=== PATIENT | male | born 1950 | race Caucasian/White ===

== ENCOUNTER 2021-03-25 13:49 | Inpatient (IN) | payer MEDICARE, MEDICAID ==
[~2021-03-25] VITALS: Ht 182.9 cm; Wt 118.0 kg
[~2021-03-25 13:49] MED LIST: CALC-1151 PO; LISI20TA28 PO; LORA1TAB PO; METF500T PO; MULT-785 PO; NAPR220C15 PO; NEBI10TA4 PO; OMEG300C2 PO; POTA8CAP PO; [UNRECOGNIZED DRUG - MIXTURE] PO
[2021-03-25 15:20] LABS: BASOPHILS # (AUTO) 0.1 X10'3 (0-0.2); BASOPHILS % (AUTO) 0.6 % (0-1); EOSINOPHILS % (AUTO) 0.2 % (0-6); HEMATOCRIT 41.1 % (42.0-52.0); HEMOGLOBIN 13.8 g/dl (14.0-17.9); LYMPHOCYTES # (AUTO) 0.8 X10'3 (1.1-4.8); MEAN CORPUSCULAR HEMOGLOBIN 29.6 PG (27.0-31.0); MEAN CORPUSCULAR HGB CONC 33.6 g/dL (33.0-36.5); MEAN PLATELET VOLUME 7.5 FL (7.4-10.4); MONOCYTES # (AUTO) 0.9 X10'3 (0-0.9); MONOCYTES % (AUTO) 7.9 % (2-12); NEUTROPHILS # (AUTO) 9.5 X10'3 (1.8-7.7); NEUTROPHILS % (AUTO) 84.3 % (42-75); PLATELET COUNT 316 X10'3 (140-440); RED BLOOD COUNT 4.67 X10'6 (4.70-6.10); RED CELL DISTRIBUTION WIDTH 13.8 % (11.5-14.5); WHITE BLOOD COUNT 11.2 X10'3 (4.5-11.0)
[2021-03-25 15:49] LABS: D-DIMER 0.54 MG/L FEU (0-0.50)
[2021-03-25 15:52] LABS: ALANINE AMINOTRANSFERASE 24 U/L (12-78); ALBUMIN 3.8 G/DL (3.4-5.0); ALBUMIN/GLOBULIN RATIO 1.2 (1.1-1.5); ALKALINE PHOSPHATASE 78 IU/L (46-116); ANION GAP 11 (8-16); ASPARTATE AMINO TRANSFERASE 18 U/L (10-37); BILIRUBIN,TOTAL 0.5 MG/DL (0.1-1.0); BLOOD UREA NITROGEN 18 MG/DL (7-18); BUN/CREATININE RATIO 18.8 (5.4-32.0); CALCIUM 9.5 MG/DL (8.5-10.1); CHLORIDE 105 MMOL/L (99-107); CREATININE 0.96 MG/DL (0.60-1.10); GLUCOSE 181 MG/DL (70-104); POTASSIUM 4.2 MMOL/L (3.5-5.1); SODIUM 143 MMOL/L (135-145); TOTAL CARBON DIOXIDE 26.8 MMOL/L (24-32); eGFR 77 ML/MIN
[2021-03-25 15:59] LABS: MAGNESIUM 1.6 MG/DL (1.5-2.4)
--- NOTE | 2021-03-25 16:21 | NUR ---
DR CARVAJAL AT BEDSIDE.
[2021-03-25] MEDS ORDERED: normal saline 1000ML IV soln IVB ONE (16:30)
[2021-03-25] MEDS ORDERED: HYDR-3965 PO (17:28)
[2021-03-25] MEDS ORDERED: GLIP5TAB13 PO (17:28)
[2021-03-25] MEDS ORDERED: METO100T14 PO (17:28)
[2021-03-25] MEDS ORDERED: BIMA2.5D OP (17:28)
[2021-03-25] MEDS ORDERED: LISI20TA28 PO (17:28)
[2021-03-25] MEDS ORDERED: HYDR25TA4 PO (17:28)
[2021-03-25] MEDS ORDERED: METF-438 PO (17:28)
[2021-03-25] MEDS ORDERED: DEXTROSE 15 GM of carb/4 tabs (each vial/BOTTLE has 4 tablets) PO PRN ×2 (17:35)
[2021-03-25] MEDS ORDERED: dextrose 50%-water 50ml dispensing syringe IV PRN ×2 (17:35)
[2021-03-25] MEDS ORDERED: mag hydrox/Alum hydrox/simeth 30ml oral suspension PO PRN (17:35)
[2021-03-25] MEDS ORDERED: MESSAGE TO PHARMACY PO ONE (17:35)
[2021-03-25] MEDS ORDERED: magnesium hydroxide 30ml (MOM) UD suspension PO PRN (17:35)
[2021-03-25] MEDS ORDERED: glucagon, human recombinant 1mg kit SUBCUT PRN (17:35)
[2021-03-25] MEDS ORDERED: acetaminophen 325mg tablet PO PRN ×2 (17:35)
[2021-03-25] MEDS ORDERED: morphine 2 MG/ML inj. syringe IV PRN (17:35)
[2021-03-25] MEDS ORDERED: aspirin 81mg tab.chew PO ONE (17:40)
[2021-03-25] MEDS ORDERED: furosemide 10 MG/1 ML 10ml inj IV ONE (17:45)
--- NOTE | 2021-03-25 17:45 | NUR ---
to MRI via wheelchair
--- NOTE | 2021-03-25 18:16 | NUR ---
returned from MRI
[2021-03-25 18:17] LABS: CHOL/HDL RATIO 4.4 (0.00-4.99); CHOLESTEROL 218 MG/DL (0-200); HDL CHOLESTEROL 49 MG/DL (35-60); LDL CHOLESTEROL 137 MG/DL (50-100); TRIGLYCERIDES 128 MG/DL (20-135)
[2021-03-25 18:46] LABS: CLARITY,URINE CLEAR (Clear); COLOR,URINE YELLOW (Yellow); GLUCOSE, URINE NEGATIVE (Neg); KETONES,URINE 15 mg/dl (Neg); LEUKOCYTE ESTERASE ,URINE NEGATIVE (Neg); NITRITES, URINE NEGATIVE (Neg); OCCULT BLOOD,URINE NEGATIVE (Neg); PROTEIN,URINE 100 mg/dl (Neg); UA COLLECTION TYPE URINAL; UROBILINOGEN,URINE 0.2 E.U/dL (0.2-1.0)
[2021-03-25 18:59] LABS: HEMOGLOBIN A1C 7.7 % (4.5-6.2)
[2021-03-25 19:04] LABS: BACTERIA,URINE NONE SEEN /HPF (Neg); MUCUS STRANDS MANY /LPF (Neg); RBC,URINE 0-2 /HPF (0-2); SQUAMOUS EPITHELIAL CELL,UR NONE SEEN /LPF (FEW); WBC,URINE 0-4 /HPF (0-4)
[2021-03-25 19:05] LABS: AMORPHOUS URATES 1+
[2021-03-25] MEDS: insulin glargine (Lantus) pen - multi-dose SQ SCH (19:16)
[2021-03-25] MEDS: docusate sod 100mg capsule PO SCH (19:17)
--- NOTE | 2021-03-25 19:51 | NUR ---
changed patients linens assisted with urinal patients at bedside call light with in reach
--- NOTE | 2021-03-25 19:53 | NUR ---
while assisting patient to use urinal he became unaware of his own abilities, and unable to follow simple commands. patient settled back in bed with clean linens, call light, and urinal within reach. at bedside.
[2021-03-25] MEDS ORDERED: thiamine 100mg/ml 2ml inj. IV ONE (20:20)
[2021-03-25] MEDS ORDERED: thiamine inj. 500 MG in normal saline 100ml IV soln 100 ML IV ONE (20:20)
[2021-03-25 22:00] VITALS: BP 151/73
--- NOTE | 2021-03-25 22:10 | NUR ---
promotional table spacer PAGER ID: [phone] MESSAGE: Radames Leahy FROM [facility] JUST CALL TO REPORT TROPONIN LEVEL FOR PT VIKRAM ROSALES IN ROOM 312. TROPONIN IS 232. DEBBIE PERSAUD.
--- NOTE | 2021-03-25 22:14 | NUR ---
NIGHT STOCKER CALL BACK. NO NEW ORDER.
[2021-03-26] VITALS (9 sets, daily range): BP systolic 145–209; BP diastolic 58–94
[2021-03-26] MEDS: labetalol 20mg/4ml (5mg/ml) syringe IV PRN (01:04)
[2021-03-26 06:09] LABS: BASOPHILS # (AUTO) 0.1 X10'3 (0-0.2); BASOPHILS % (AUTO) 0.8 % (0-1); EOSINOPHILS # (AUTO) 0.1 X10'3 (0-0.9); EOSINOPHILS % (AUTO) 0.9 % (0-6); HEMATOCRIT 38.3 % (42.0-52.0); HEMOGLOBIN 12.9 g/dl (14.0-17.9); LYMPHOCYTES # (AUTO) 1.4 X10'3 (1.1-4.8); MEAN CORPUSCULAR HEMOGLOBIN 29.8 PG (27.0-31.0); MEAN CORPUSCULAR HGB CONC 33.7 g/dL (33.0-36.5); MEAN CORPUSCULAR VOLUME 88.4 FL (78-98); MEAN PLATELET VOLUME 7.5 FL (7.4-10.4); MONOCYTES # (AUTO) 0.9 X10'3 (0-0.9); NEUTROPHILS # (AUTO) 4.8 X10'3 (1.8-7.7); NEUTROPHILS % (AUTO) 66.3 % (42-75); PLATELET COUNT 281 X10'3 (140-440); RED BLOOD COUNT 4.34 X10'6 (4.70-6.10); RED CELL DISTRIBUTION WIDTH 13.5 % (11.5-14.5); WHITE BLOOD COUNT 7.2 X10'3 (4.5-11.0)
[2021-03-26 06:11] LABS: ALBUMIN 3.4 G/DL (3.4-5.0); ANION GAP 10 (8-16); BLOOD UREA NITROGEN 14 MG/DL (7-18); BUN/CREATININE RATIO 16.9 (5.4-32.0); CALCIUM 8.9 MG/DL (8.5-10.1); CHLORIDE 103 MMOL/L (99-107); CHOL/HDL RATIO 4.3 (0.00-4.99); CHOLESTEROL 201 MG/DL (0-200); CREATININE 0.83 MG/DL (0.60-1.10); GLUCOSE 135 MG/DL (70-104); HDL CHOLESTEROL 47 MG/DL (35-60); LDL CHOLESTEROL 129 MG/DL (50-100); POTASSIUM 3.2 MMOL/L (3.5-5.1); SODIUM 142 MMOL/L (135-145); TOTAL CARBON DIOXIDE 28.9 MMOL/L (24-32); TRIGLYCERIDES 127 MG/DL (20-135); eGFR > 90 ML/MIN
--- NOTE | 2021-03-26 06:27 | NUR ---
PAGER ID: [phone] MESSAGE: YURI BRAY FROM [facility] JUST CALL FOR PT VIKRAM ROSALES IN ROOM 312. TROPONIN LEVEL IS 148. DEBBIE PERSAUD
[2021-03-26] MEDS ORDERED: HYDROcodone/acetaminophen 5mg/325mg tablet PO PRN (07:25)
[2021-03-26] MEDS: docusate sod 100mg capsule PO SCH ×2 (08:00→20:17)
[2021-03-26] MEDS: aspirin 325mg tablet, delayed-release (Ecotrin) PO SCH (10:20)
[2021-03-26] MEDS: HYDROchlorothiazide 25mg tablet PO SCH (10:20)
[2021-03-26] MEDS: metoprolol tartrate 50mg tablet PO SCH (10:21)
[2021-03-26] MEDS: lisinopril 20mg tablet PO SCH ×2 (10:25→20:17)
--- NOTE | 2021-03-26 10:36 | NUR ---
Paged Dr Roblero PAGER ID: [phone] MESSAGE: [phone]. Robby Doherty. Layla 3.2, electrolyte protocol? Orthostatic VS in chart. Sherri [phone]
--- NOTE | 2021-03-26 11:20 | NUR ---
Noted pt with T2DM, fairly well controlled with A1c 7.7%. Per EMR pt A/O x 1 and confused, DM education deferred at this time. Will continue to follow. Addendum: 03/26/21 at [address] Amended: Links added.
[2021-03-26] MEDS: furosemide 20 MG/2 ML vial IV SCH ×2 (12:32→20:17)
[2021-03-26] MEDS: latanoprost 0.005% 2.5ml ophthalmic drops EACHEYE SCH (20:21)
[2021-03-26] MEDS: insulin glargine (Lantus) pen - multi-dose SQ SCH (21:24)
[2021-03-26] MEDS ORDERED: LORazepam 2 mg/ml vial IV ONE (22:40)
[2021-03-26] MEDS: morphine 2 MG/ML inj. syringe IV PRN (22:50)
--- NOTE | 2021-03-27 01:01 | NUR ---
Patient unsteady not done Addendum: 03/27/21 at 0102 by Loc Almaguer RN Amended: Links added.
[2021-03-27 02:00] VITALS: BP 169/105
--- NOTE | 2021-03-27 03:18 | NUR ---
unable to obtain patient confused and resistant Addendum: 03/27/21 at 0319 by Loc Almaguer RN Amended: Links added.
[2021-03-27] MEDS: labetalol 20mg/4ml (5mg/ml) syringe IV PRN (04:42)
[2021-03-27 05:28] VITALS: BP 144/77
--- NOTE | 2021-03-27 06:30 | NUR ---
Patient in room MED 312. I have received report from Marilu PERSAUD and had the opportunity to ask questions and assume patient care.
--- NOTE | 2021-03-27 06:36 | NUR ---
Problems reprioritized. Patient report given, questions answered & plan of care reviewed with Samia.
[2021-03-27 07:46] LABS: ALBUMIN 3.5 G/DL (3.4-5.0); ANION GAP 12 (8-16); BASOPHILS # (AUTO) 0.1 X10'3 (0-0.2); BASOPHILS % (AUTO) 1.2 % (0-1); BLOOD UREA NITROGEN 16 MG/DL (7-18); BUN/CREATININE RATIO 20.3 (5.4-32.0); CALCIUM 8.6 MG/DL (8.5-10.1); CHLORIDE 102 MMOL/L (99-107); CREATININE 0.79 MG/DL (0.60-1.10); EOSINOPHILS # (AUTO) 0.2 X10'3 (0-0.9); EOSINOPHILS % (AUTO) 3.7 % (0-6); GLUCOSE 150 MG/DL (70-104); HEMATOCRIT 41.6 % (42.0-52.0); HEMOGLOBIN 13.9 g/dl (14.0-17.9); LYMPHOCYTES # (AUTO) 1.3 X10'3 (1.1-4.8); MEAN CORPUSCULAR HEMOGLOBIN 29.7 PG (27.0-31.0); MEAN CORPUSCULAR HGB CONC 33.4 g/dL (33.0-36.5); MEAN CORPUSCULAR VOLUME 88.9 FL (78-98); MEAN PLATELET VOLUME 7.5 FL (7.4-10.4); MONOCYTES # (AUTO) 0.8 X10'3 (0-0.9); MONOCYTES % (AUTO) 12.3 % (2-12); NEUTROPHILS # (AUTO) 3.9 X10'3 (1.8-7.7); NEUTROPHILS % (AUTO) 61.8 % (42-75); PLATELET COUNT 292 X10'3 (140-440); POTASSIUM 3.8 MMOL/L (3.5-5.1); RED BLOOD COUNT 4.68 X10'6 (4.70-6.10); RED CELL DISTRIBUTION WIDTH 13.7 % (11.5-14.5); SODIUM 144 MMOL/L (135-145); TOTAL CARBON DIOXIDE 30.5 MMOL/L (24-32); WHITE BLOOD COUNT 6.3 X10'3 (4.5-11.0); eGFR > 90 ML/MIN
[2021-03-27] MEDS: aspirin 325mg tablet, delayed-release (Ecotrin) PO SCH (08:51)
[2021-03-27] MEDS: furosemide 20 MG/2 ML vial IV SCH ×2 (08:51→19:45)
[2021-03-27] MEDS: docusate sod 100mg capsule PO SCH ×2 (08:53→19:44)
[2021-03-27] MEDS: HYDROchlorothiazide 25mg tablet PO SCH (08:53)
[2021-03-27] MEDS: lisinopril 20mg tablet PO SCH ×2 (08:53→19:45)
[2021-03-27] MEDS: metoprolol tartrate 50mg tablet PO SCH (08:53)
[2021-03-27] MEDS: insulin Lispro (HumaLOG) vial - multi-dose SQ SCH (10:31)
--- NOTE | 2021-03-27 18:20 | NUR ---
Problems reprioritized. Patient report given, questions answered & plan of care reviewed with Christiana RN.
[2021-03-27] MEDS: ondansetron/PF 4mg/2ml inj IV PRN (18:43)
[2021-03-27 19:00] VITALS: BP 186/89
[2021-03-27] MEDS: insulin glargine (Lantus) pen - multi-dose SQ SCH (19:50)
[2021-03-27] MEDS: latanoprost 0.005% 2.5ml ophthalmic drops EACHEYE SCH (21:00)
[2021-03-27 23:00] VITALS: BP 147/71
[2021-03-28 03:00] VITALS: BP 138/63
[2021-03-28] MEDS: ondansetron/PF 4mg/2ml inj IV PRN (04:12)
[2021-03-28 06:00] VITALS: BP 152/68
[2021-03-28 06:39] LABS: BASOPHILS % (AUTO) 0.4 % (0-1); EOSINOPHILS % (AUTO) 0.4 % (0-6); HEMOGLOBIN 14.2 g/dl (14.0-17.9); LYMPHOCYTES # (AUTO) 0.9 X10'3 (1.1-4.8); LYMPHOCYTES % (AUTO) 12.4 % (21-51); MEAN CORPUSCULAR HEMOGLOBIN 29.7 PG (27.0-31.0); MEAN CORPUSCULAR HGB CONC 33.7 g/dL (33.0-36.5); MEAN CORPUSCULAR VOLUME 88.1 FL (78-98); MEAN PLATELET VOLUME 7.5 FL (7.4-10.4); MONOCYTES # (AUTO) 0.8 X10'3 (0-0.9); MONOCYTES % (AUTO) 10.9 % (2-12); NEUTROPHILS # (AUTO) 5.5 X10'3 (1.8-7.7); NEUTROPHILS % (AUTO) 75.9 % (42-75); PLATELET COUNT 316 X10'3 (140-440); RED BLOOD COUNT 4.76 X10'6 (4.70-6.10); RED CELL DISTRIBUTION WIDTH 13.4 % (11.5-14.5); WHITE BLOOD COUNT 7.2 X10'3 (4.5-11.0)
[2021-03-28 07:25] LABS: ALBUMIN 3.6 G/DL (3.4-5.0); ANION GAP 9 (8-16); BLOOD UREA NITROGEN 23 MG/DL (7-18); BUN/CREATININE RATIO 25.8 (5.4-32.0); CALCIUM 9.5 MG/DL (8.5-10.1); CHLORIDE 99 MMOL/L (99-107); CREATININE 0.89 MG/DL (0.60-1.10); GLUCOSE 164 MG/DL (70-104); POTASSIUM 4.1 MMOL/L (3.5-5.1); SODIUM 142 MMOL/L (135-145); TOTAL CARBON DIOXIDE 33.9 MMOL/L (24-32); eGFR 85 ML/MIN
[2021-03-28] MEDS: HYDROchlorothiazide 25mg tablet PO SCH (09:04)
[2021-03-28] MEDS: lisinopril 20mg tablet PO SCH ×2 (09:04→19:45)
[2021-03-28] MEDS: metoprolol tartrate 50mg tablet PO SCH (09:05)
[2021-03-28] MEDS: furosemide 20 MG/2 ML vial IV SCH ×2 (09:05→19:46)
[2021-03-28] MEDS: aspirin 325mg tablet, delayed-release (Ecotrin) PO SCH (09:05)
[2021-03-28] MEDS: docusate sod 100mg capsule PO SCH ×2 (09:05→19:46)
[2021-03-28 10:00] VITALS: BP 157/79
[2021-03-28] MEDS: insulin Lispro (HumaLOG) vial - multi-dose SQ SCH (13:37)
[2021-03-28 14:00] VITALS: BP 136/67
--- NOTE | 2021-03-28 17:46 | NUR ---
Mr Doherty has been assessed as indicated. He has been noted to be both pleasant and cooperative. His mentation is more clear than days pass per report as well as his , who was in to visit him today. He has ambulated with PT today. He continues to deny pain. Blood sugars have required insulin coverage. He is presently resting quietly.
[2021-03-28 18:00] VITALS: BP 139/62
--- NOTE | 2021-03-28 18:15 | NUR ---
Problems reprioritized. Patient report given, questions answered & plan of care reviewed with TAMMY PERSAUD .
[2021-03-28] MEDS: latanoprost 0.005% 2.5ml ophthalmic drops EACHEYE SCH (20:33)
[2021-03-28] MEDS: insulin glargine (Lantus) pen - multi-dose SQ SCH (20:56)
[2021-03-28 22:00] VITALS: BP 110/59
--- NOTE | 2021-03-29 00:05 | NUR ---
Patient asleeps. all safety measures in place. Addendum: 03/30/21 at 0644 by Cary Almaguer RN Wrong date
[2021-03-29 02:00] VITALS: BP 135/81
--- NOTE | 2021-03-29 03:36 | NUR ---
patient just had an episode of confusion that started at 0336. Patient stated that "he is confused. He doesn't know what happended. What happen to the wall. Where's the food you were cooking". patient took off everything he was attached to. He was questioning my uniform my ID by asking what they are.After 5 minutes, patient is less confused (AAOX1).
[2021-03-29 06:00] VITALS: BP 137/83
--- NOTE | 2021-03-29 06:19 | NUR ---
Problems reprioritized. Patient report given, questions answered & plan of care reviewed with CORI Lamb.
[2021-03-29 07:19] LABS: BASOPHILS # (AUTO) 0.1 X10'3 (0-0.2); EOSINOPHILS # (AUTO) 0.1 X10'3 (0-0.9); HEMOGLOBIN 14.3 g/dl (14.0-17.9); LYMPHOCYTES # (AUTO) 1.5 X10'3 (1.1-4.8); LYMPHOCYTES % (AUTO) 21.3 % (21-51); MEAN CORPUSCULAR HEMOGLOBIN 29.9 PG (27.0-31.0); MEAN CORPUSCULAR HGB CONC 34.2 g/dL (33.0-36.5); MEAN CORPUSCULAR VOLUME 87.5 FL (78-98); MEAN PLATELET VOLUME 7.5 FL (7.4-10.4); MONOCYTES # (AUTO) 0.9 X10'3 (0-0.9); MONOCYTES % (AUTO) 12.9 % (2-12); NEUTROPHILS # (AUTO) 4.3 X10'3 (1.8-7.7); NEUTROPHILS % (AUTO) 62.8 % (42-75); PLATELET COUNT 301 X10'3 (140-440); RED BLOOD COUNT 4.79 X10'6 (4.70-6.10); RED CELL DISTRIBUTION WIDTH 13.2 % (11.5-14.5); WHITE BLOOD COUNT 6.9 X10'3 (4.5-11.0)
[2021-03-29 07:35] LABS: ALBUMIN 3.6 G/DL (3.4-5.0); ANION GAP 11 (8-16); BLOOD UREA NITROGEN 29 MG/DL (7-18); BUN/CREATININE RATIO 26.9 (5.4-32.0); CALCIUM 8.8 MG/DL (8.5-10.1); CHLORIDE 98 MMOL/L (99-107); CREATININE 1.08 MG/DL (0.60-1.10); GLUCOSE 136 MG/DL (70-104); POTASSIUM 3.8 MMOL/L (3.5-5.1); SODIUM 142 MMOL/L (135-145); TOTAL CARBON DIOXIDE 33.5 MMOL/L (24-32); eGFR 68 ML/MIN
[2021-03-29] MEDS: metoprolol tartrate 50mg tablet PO SCH (09:02)
[2021-03-29] MEDS: docusate sod 100mg capsule PO SCH ×2 (09:02→19:15)
[2021-03-29] MEDS: HYDROchlorothiazide 25mg tablet PO SCH (09:02)
[2021-03-29] MEDS: lisinopril 20mg tablet PO SCH ×2 (09:03→19:15)
[2021-03-29] MEDS: aspirin 325mg tablet, delayed-release (Ecotrin) PO SCH (09:03)
[2021-03-29] MEDS: furosemide 20 MG/2 ML vial IV SCH ×2 (09:03→19:16)
[2021-03-29] MEDS: insulin Lispro (HumaLOG) vial - multi-dose SQ SCH ×2 (09:09→19:13)
[2021-03-29 10:00] VITALS: BP 123/79
[2021-03-29] MEDS ORDERED: LORazepam 2 mg/ml vial IV ONE (10:10)
[2021-03-29 15:30] VITALS: BP 132/72
[2021-03-29] MEDS ORDERED: temazepam 15mg capsule PO PRN (17:35)
[2021-03-29] MEDS: ondansetron/PF 4mg/2ml inj IV PRN (17:42)
[2021-03-29 18:00] VITALS: BP 131/79
--- NOTE | 2021-03-29 18:17 | NUR ---
Mr. Doherty has had MRI studies completed this shift. He has experienced increased confusion and restlessness. The results of the MRI have been shared with his by the MD.She expressed that she understood. Both she and Mr Doherty have agreed to have him be DC to home tomorrow. He has completed dinner and needs frequent redirecting to stay in bed. He does have a sedative available a HS. He will continue to be monitored
--- NOTE | 2021-03-29 18:46 | NUR ---
Problems reprioritized. Patient report given, questions answered & plan of care reviewed with TAMMY .
[2021-03-29] MEDS: morphine 2 MG/ML inj. syringe IV PRN (20:43)
[2021-03-29] MEDS: latanoprost 0.005% 2.5ml ophthalmic drops EACHEYE SCH (20:43)
[2021-03-29] MEDS: insulin glargine (Lantus) pen - multi-dose SQ SCH (20:49)
[2021-03-29 22:00] VITALS: BP 116/79
--- NOTE | 2021-03-29 22:00 | NUR ---
Patient remains confused and restless. attempts several time to get out of bed. patient kicks the overbed table and drops everything to the floor. He takes off all the leads. attempts to call but forgets the entire phone number. patient orientation fluctuate (AAX1 and AAOX3)from one moment to the next. patient calls to pick him up. Patient states "[place] the [place] in the corner next to their house, then in the hospital. Someone is after him". At least one staff remain in room for safety.
--- NOTE | 2021-03-30 00:05 | NUR ---
Patient asleeps. all safety measures in place.
[2021-03-30 02:00] VITALS: BP 149/70
[2021-03-30 06:00] VITALS: BP 120/72
[2021-03-30 06:10] LABS: BASOPHILS # (AUTO) 0.1 X10'3 (0-0.2); BASOPHILS % (AUTO) 1.1 % (0-1); EOSINOPHILS # (AUTO) 0.2 X10'3 (0-0.9); EOSINOPHILS % (AUTO) 2.5 % (0-6); HEMATOCRIT 45.1 % (42.0-52.0); HEMOGLOBIN 15.3 g/dl (14.0-17.9); LYMPHOCYTES # (AUTO) 2.6 X10'3 (1.1-4.8); MEAN CORPUSCULAR HEMOGLOBIN 29.8 PG (27.0-31.0); MEAN CORPUSCULAR HGB CONC 33.9 g/dL (33.0-36.5); MEAN CORPUSCULAR VOLUME 88.1 FL (78-98); MEAN PLATELET VOLUME 7.5 FL (7.4-10.4); MONOCYTES # (AUTO) 1.4 X10'3 (0-0.9); MONOCYTES % (AUTO) 14.2 % (2-12); NEUTROPHILS # (AUTO) 5.5 X10'3 (1.8-7.7); NEUTROPHILS % (AUTO) 56.2 % (42-75); PLATELET COUNT 382 X10'3 (140-440); RED BLOOD COUNT 5.12 X10'6 (4.70-6.10); RED CELL DISTRIBUTION WIDTH 13.2 % (11.5-14.5); WHITE BLOOD COUNT 9.8 X10'3 (4.5-11.0)
--- NOTE | 2021-03-30 06:22 | NUR ---
patient in no apparent distress. Problems reprioritized. Patient report given, questions answered & plan of care reviewed with CORI Lamb.
[2021-03-30 06:38] LABS: ALBUMIN 4.1 G/DL (3.4-5.0); ANION GAP 16 (8-16); BLOOD UREA NITROGEN 42 MG/DL (7-18); BUN/CREATININE RATIO 33.1 (5.4-32.0); CHLORIDE 96 MMOL/L (99-107); CREATININE 1.27 MG/DL (0.60-1.10); GLUCOSE 153 MG/DL (70-104); POTASSIUM 4.3 MMOL/L (3.5-5.1); SODIUM 143 MMOL/L (135-145); eGFR 56 ML/MIN
[2021-03-30] MEDS ORDERED: FURO-150 PO (08:36)
[2021-03-30] MEDS: aspirin 325mg tablet, delayed-release (Ecotrin) PO SCH (08:43)
[2021-03-30] MEDS: docusate sod 100mg capsule PO SCH (08:43)
[2021-03-30] MEDS: metoprolol tartrate 50mg tablet PO SCH (08:43)
[2021-03-30] MEDS: furosemide 20 MG/2 ML vial IV SCH (08:43)
[2021-03-30] MEDS: HYDROchlorothiazide 25mg tablet PO SCH (08:44)
[2021-03-30] MEDS: lisinopril 20mg tablet PO SCH (08:44)
[2021-03-30] MEDS: insulin Lispro (HumaLOG) vial - multi-dose SQ SCH (09:43)
[2021-03-30 10:00] VITALS: BP_SYST 122; BP_SYST 93; BP_DIAS 56; BP_DIAS 61
--- NOTE | 2021-03-30 11:44 | NUR ---
Mr Doherty has been DC to [facility] via [facility]. Report has been called to Mouna. he will be going to room 104 on the East wing. He was followed to the facility by his . She has notified family members of the transfer. IV access was removed. There were no s/s of distress or discomfort at the time of DC. The family was compliant with the plan to DC to [facility]
== END 2021-03-30 11:25 | DRG 72 ==
LOC: ER 13:50 → ED HOLD 17:42 → MED 3N 20:14
PROVIDERS: ADMIT Internal Medicine; ATTEND Internal Medicine
PROC: 4A10X4Z Monitoring of Central Nervous Electrical Activity, External Approach (ICD-10-PCS; principal; 2021-03-27)
DX: G93.40 Encephalopathy, unspecified (principal); I16.0 Hypertensive urgency; I27.81 Cor pulmonale (chronic); E11.9 Type 2 diabetes mellitus without complications; Z20.822 Contact with and (suspected) exposure to COVID-19; R29.700 NIHSS score 0; W18.39XA Other fall on same level, initial encounter; I65.23 Occlusion and stenosis of bilateral carotid arteries; R29.6 Repeated falls; Z79.82 Long term (current) use of aspirin; Z79.899 Other long term (current) drug therapy; Z87.891 Personal history of nicotine dependence; Y93.89 Activity, other specified; Y92.89 Other specified places as the place of occurrence of the external cause; Y99.8 Other external cause status
CPT/HCPCS: 36415; 70450; 70544; 70551; 71045; 72146; 72148; 73502; 80048; 80053; 80061; 81001; 82948; 83036; 83605; 83735; 83880; 84145; 84484; 85025; 85379; 85651; 87081; 87635; 93005; 93306; 93880; 95816; 97110; 97116; 97162; 97530; 99285; C9803; G0378; J1815; J1940; J2060; J2270; J2405; J3411; J3490; J7030

== ENCOUNTER 2021-11-07 15:28 | Emergency (ER) | payer MEDICARE, MEDICAID ==
[~2021-11-07] VITALS: Ht 177.8 cm; Wt 117.0 kg
[~2021-11-07 15:28] MED LIST changes: +BIMA2.5D OP; -CALC-1151 PO; +FURO-150 PO; +GLIP5TAB13 PO; +HYDR-3965 PO; +HYDR25TA4 PO; -LORA1TAB PO; +METF-438 PO; -METF500T PO; +METO100T14 PO; -MULT-785 PO; -NAPR220C15 PO; -NEBI10TA4 PO; -OMEG300C2 PO; -POTA8CAP PO; -[UNRECOGNIZED DRUG - MIXTURE] PO
[2021-11-07 16:21] VITALS: BP 179/87
[2021-11-07] MEDS ORDERED: LIDOcaine 1% W/epiNEPHrine 1:100,000 20ml vial SQ ONE (17:45)
[2021-11-07] MEDS ORDERED: TETanus/Pertussis (Acell)/Diphther VAC/PF (Tdap-Adult) 0.5ml syringe IMVAC ONE (17:45)
[2021-11-07] MEDS ORDERED: LIDOCAINE 1%/EPI 1:100,000 inj. 10 ML multi-dose vial SQ ONE (18:20)
== END 2021-11-07 18:46 | disposition home or self-care (01) ==
LOC: ER 15:28
DX: S81.811A Laceration without foreign body, right lower leg, initial encounter (principal); E11.9 Type 2 diabetes mellitus without complications; Z79.899 Other long term (current) drug therapy; X58.XXXA Exposure to other specified factors, initial encounter; Y93.89 Activity, other specified; Y92.89 Other specified places as the place of occurrence of the external cause; Y99.8 Other external cause status
CPT/HCPCS: 12001; 90471; 90715; 99283; A6449